=== PATIENT | male | born 1945 | race Caucasian/White ===

== ENCOUNTER 2021-03-12 06:44 | Day surgery (SDC) | payer MEDICARE, SELFPAY ==
--- NOTE | 2021-03-12 06:58 | W.ANESPRE ---
General Info Date of Service Date Performed: 03/12/21 Height: 5 ft 11 in Weight: 84.822 kg Body Mass Index (BMI): 26.0 Surgical Procedure: Operation Date: 03/12/21 08:40 Proposed Procedures Side Surgeon p Cataract Extraction with IOL Implant Left Fredrick Jackson MD Meds Allergies and Home Medications Allergies Allergy/AdvReac Type Severity Reaction Status Date / Time Penicillins Allergy Intermediate Skin Rash Unverified 03/09/21 10:44 codeine Allergy Unknown Skin Rash Unverified 03/09/21 10:44 propofol Allergy Unknown Other (See Unverified 03/09/21 10:44 Comment) sulfadiazine Allergy Unknown Itching Unverified 03/09/21 10:44 Seasonal allergies Allergy Intermediate Other (See Uncoded 03/09/21 10:44 Comment) Home Medication Medication Instructions Recorded acetaminophen 500 mg PO Q6H 03/09/21 bupropion HCl 150 mg PO DAILY 03/09/21 cetirizine 10 mg PO DAILY 03/09/21 finasteride 5 mg PO DAILY 03/09/21 gabapentin 400 mg PO TID 03/09/21 lidocaine-prilocaine 1 applic TOPICAL DAILY PRN 03/09/21 mecobalamin (vitamin B12) 10,000 mcg IM DIRECTED 03/09/21 meloxicam 15 mg PO DAILY PRN 03/09/21 pantoprazole 40 mg PO DAILY 03/09/21 tamsulosin 0.4 mg PO DAILY 03/09/21 Current Visit Medications: Current Medications Generic Name Dose Route Start Last Admin Trade Name Freq PRN Reason Stop Dose Admin Acetaminophen 1,000 mg 03/12/21 06:00 Acetaminophen 500 Mg Tab PO Q4H PRN PRN Miscellaneous Medication 0 ml 03/12/21 06:00 Prednisolone 1%, Moxifloxacin 0.5%, Nepafenac 0.1% 5ml Btl OS DIRECTED [facility] Miscellaneous Medication 0 ml 03/12/21 06:00 Tropicam./Phenyleph. (1/2.5%) 5 Ml Btl OS DIRECTED [facility] Tetracaine HCl 0 ml 03/12/21 06:00 Tetracaine 0.5% 4 Ml Btl OS DIRECTED [facility] Medical History Medical History (Updated 03/12/21 @ 07:00 by Scott Rosado) Chronic low back pain Hypotension Tiredness Surgical History Surgical History History of esophagogastroduodenoscopy (EGD) History of orthopedic surgery History of prostate surgery Hx of appendectomy Hx of cataract surgery Hx of cervical spine surgery Hx of cholecystectomy Hx of cystoscopy Hx of elbow surgery Hx of eye surgery Hx of spinal surgery Hx of tonsillectomy Hx of transurethral resection of prostate Tobacco Smoking/Tobacco Use Status: Never Alcohol Alcohol Intake: current Alcohol intake frequency: a few times a month Alcohol type: beer Substance Use Substance use: Never Substance use type: does not use Vital Signs and Lab Results Lab Results Blood Type / Crossmatch: No Data to Display Complete Blood Count: No Data to Display Complete Metabolic Panel: No Data to Display Liver Function Panel: No Data to Display Coagulation Panel: No Data to Display Cardiac Panel: No Data to Display Arterial Blood Gas: No Data to Display Venous Blood Gas: No Data to Display Pancreas Panel: No Data to Display Thyroid Panel: No Data to Display Infectious Disease: No Data to Display Blood Cultures: No Data to Display Toxicology Panel: No Data to Display Anesthesia Assessment and Plan Anesthesia History Personal History: Other (Per patient was notified during ACDF that he was a difficult intubation. No problems since with any GA. Patient not aware of Propofol allergy) Family History: No Family History of Anesthesia Complications Exercise Tolerance Exercise Tolerance: Metabolic Equivalents>4 Pertinent Negatives Pertinent Negatives: No Symptoms of GERD, No Major Cardiovascular Symptoms or Complaints, No Major Pulmonary Symptoms or Complaints and No History of CVA/TIA Cardiac & Pulmonary Exam Cardiac Exam: Normal S1/S2 Heart Sounds Pulmonary Exam: Clear Bilateral Breath Sounds Airway Exam Known Difficult Airway: No Mallampati Class: 2 Mouth Opening: Normal (> 3cm) Thyromental Distance: Greater than 3 cm Neck Range of Motion: Full ROM Neck Circumference: Normal Teeth Condition: Normal Dentition ASA Classification ASA Score: ASA 2 Emergency Case?: No NPO Status NPO Status: NPO Clears >2 hours, Solids >8 hours Anesthesia Plan Resuscitation Status: Full Code Anesthesia Technique: MAC Anesthesia Airway Planned: Natural Airway Monitors Used: Standard Monitors
[2021-03-12 07:09] VITALS: BP 115/76; PULSE 68; RESP 16; TEMP 36.3; O2SAT 96
[2021-03-12 07:19] VITALS: BMI 26.0
[2021-03-12] MEDS: Tropicam./Phenyleph. (1/2.5%) 5 ML BTL OS ×3 (07:25→07:38)
[2021-03-12] MEDS: Tetracaine 0.5% 4 ML BTL OS (08:32)
[2021-03-12] MEDS: Balanced Salt Soln.-PLUS 500 ML BAG (08:33)
[2021-03-12] MEDS: Duovisc Viscoelastic System EACH 1 EACH ×2 (08:33→09:12)
[2021-03-12] MEDS: Lidocaine 1% Pres-Free 5 ML VIAL (08:34)
[2021-03-12] MEDS: Lidocaine 2% Jelly 6 ML SYR (08:34)
[2021-03-12] MEDS: Povidone-Iodine Ophth 30 ML BTL (08:36)
[2021-03-12] MEDS: Trypan Blue 0.06% 0.5 ML SYR (08:36)
--- NOTE | 2021-03-12 09:39 | W.PM.DSUDISC ---
Discharge Plan Disposition Patient Disposition: HOME Condition: Good Discharge Details Attending Provider: Fredrick Jackson Home Meds and New Rx's Prescriptions: No Action cetirizine 10 mg Tablet 10 mg PO DAILY RF: 0 meloxicam 15 mg Tablet 15 mg PO DAILY PRNRF: 0 acetaminophen 500 mg Tablet 500 mg PO Q6H RF: 0 lidocaine-prilocaine 2.5-2.5 % Cream 1 applic topical DAILY PRNRF: 0 tamsulosin 0.4 mg Capsule 0.4 mg PO DAILY RF: 0 pantoprazole 40 mg Tablet,Delayed Release (Dr/Ec) 40 mg PO DAILY RF: 0 finasteride 5 mg Tablet 5 mg PO DAILY RF: 0 bupropion HCl 150 mg Tablet Extended Release 24 Hr 150 mg PO DAILY RF: 0 gabapentin 100 mg Tablet 400 mg PO TID RF: 0 mecobalamin (vitamin B12) 10,000 mcg Recon Soln 10,000 mcg IM DIRECTED RF: 0 Discharge Instructions Stand Alone Forms: Post-op Topical Cataract, Jaclyn Bae (DSU) Discharge Orders Discharge Orders: Discharge Order (Routine); Ordered 03/12/21 Ordered By: Fredrick Jackson DS: Diagnosis Discharge Diagnosis (1) Nuclear sclerotic cataract of left eye: Status: Resolved
--- NOTE | 2021-03-12 09:40 | ROE_ITS ---
Date of service: 03/12/21 Time of Service: 09:40 Operative Note Operative Note DATE OF PROCEDURE: 03/12/21 PRE-OP DIAGNOSIS: Dense nuclear cataract, left eye Poorly dilating pupil, left eye Poor red reflex, left eye secondary to cataract Posterior synechia inferiorly Status post peripheral laser iridotomy, left eye PROCEDURE: Cataract extraction using phacoemulsification with intraocular lens implant, left eye, with pupillary dilation using Malyugin Ring and capsular staining using Vision Blue SURGEON: Fredrick Jackson ANESTHESIA TYPE: Local By Surgeon and MAC Refer to Anesthesia Record ESTIMATED BLOOD LOSS: 0 PATHOLOGY: none sent COMPLICATIONS: None Patient was transported to: same day Patient's condition: stable Implants: [employer] / [employer] Tecnis [id number] Indications: Progressive decreased vision due to cataract, left eye Procedure Description: CATARACT SURGERY OPERATIVE REPORT PREOPERATIVE DIAGNOSIS: 1. Dense nuclear cataract, left eye 2. Poorly dilating pupil, left eye 3. Poor red reflex, left eye POSTOPERATIVE DIAGNOSIS: Same OPERATION: 1. Cataract extraction using phacoemulsification with posterior chamber intraocular lens implant, left eye. 2. Pupillary dilation and iris stabilization using Malyugin Ring 3. Capsular staining with VIsion Blue IOL: IOL Blow Molding Machine Operator/Model: [employer]ray[employer] / ANI Tecnis [id number] IOL Power: + 18.0 diopters IOL Serial Number: [id number] Optic Diameter: 6.0mm Haptic/Overall Diameter: 13.0mm PHACO INFO: Chris Kuratururion Vision System with OZil and Active [employer]uidics Cumulative Dispersed Energy (CDE): 13.95 seconds SURGEON: Fredrick Jackson MD, JEN ANESTHESIA: Monitored Anesthesia Care (MAC), with local sub-tenon's anesthetic infiltration COMPLICATIONS: None SPECIMENS: None INDICATIONS FOR PROCEDURE: The patient is a 75-year-old gentleman with history of narrow anterior chamber angles who has undergone laser iridotomy in both eyes approximately 15 years ago. He has previously undergone cataract surgery in the right eye in [place] in 2018. He has now developed a significant nuclear cataract in the left eye. He has a moderate to shallow anterior chamber in the left eye with posterior synechia inferiorly and a poorly dilating pupil. The option of cataract surgery was offered to the patient and he wished to proceed. PROCEDURE: The correct surgical eye was identified and marked as the left eye and the pupil was dilated in the preoperative area using mydriatics, cycloplegics, and NSAIDS (except in aspirin allergic patients). The dilated pupil size was 4.0 mm. He elected to proceed without oral sedation. The patien t was brought to the operating room where cardiopulmonary monitoring was instituted and surgical time-out was performed, confirming the correct operative eye and IOL power. Topical anesthesia was administered and ophthalmic povidone-iodine 5% was instilled into the conjunctival fornices. Lidocaine gel was applied to the cornea and the frieda-ocular area was prepped with Betadine 10% solution and draped in the usual sterile fashion for intraocular surgery, including an aperture drape. A Tegaderm transparent film dressing was cut in half and used to cover the lashes and lid margins. Care was taken to sequester the lashes and lid margins under the Tegaderm dressing. A lid speculum was placed between the lids of the operative eye and the Donna-Brock operating microscope was maneuvered into position. Alec scissors were then used to make a conjunctival buttonhole approximately 6mm posterior to the limbus in the inferonasal quadrant. Blunt dissection was carried out to expose bare sclera, and a blunt-tipped sub-tenon?s anesthesia cannula was introduced and passed posteriorly along the globe where non- preserved plain lidocaine was injected into posterior sub-Tenon?s space. A side port knife was used to make a paracentesis port superiorly/superiortemporally. Intraocular phenylephrine/lidocaine was injected into the anterior chamber. Air was then injected into anterior chamber, followed by Vision Blue, which was painted over the anterior capsule and then irrigated out with BSS. The anterior chamber was then filled with viscoelastic. A 2.4mm keratome knife was used to create a half-thickness groove at the limbus and then to construct a three-plane near-clear corneal tunnel extending 2.0mm into clear cornea temporally. A Kuglen hook was then used to release posterior synechia from approximately 4:00 to 7:00. A 7.0 mm Malyugin Ring was then inserted into the pupillary space and engaged with the Kuglen hook. A flap was raised on the anterior capsule and capsulorhexis forceps were used to initiate a capsulorhexis at the 1 o'clock position, traveling clockwise. At approximately the 4 o'clock position, scarring was noted between the capsule and lens cortex, causing the capsulorrhexis to radial eyes peripherally. Additional viscoelastic was then injected into the anterior chamber. Using the Little maneuver, I was unable to bring the capsulorrhexis centrally. A cystotome was then used to make a kateryna in the capsule at the 1 o'clock position and a capsulorrhexis was initiated in the counterclockwise direction, connecting with the peripherally extended capsul orhexis at the 4 o'clock position. Balanced salt solution was then used to perform very gentle cortical cleaving hydrodissection and nuclear hydrodelineation until the lens could be an early rotated within the capsular bag. The lens nucleus was then disassembled and removed within the capsular bag and iris plane using phacoemulsification. Nuclear splitters were used to aid in cracking the dense nucleus into smaller fragments. Additional dispersive viscoelastic was used to protect the corneal endothelium. Once the lens nucleus and epinucleus was removed, it was found that the peripherally extended capsulorrhexis inferior temporally had turned into a radial tear. Residual cortical material was removed using the 45-degree angled silicone I/A tip with 0.3mm port. There was some residual subincisional cortex and inferior temporal cortex in the area of the radial tear which could not be safely removed. Visco dissection was attempted to dissect the remaining cortex off of the posterior capsule, but was unsuccessful. . The capsular bag was then inflated and the anterior chamber deepened with viscoelastic. The lens implant described above was inserted into the capsular bag using the ANI [place] Injector. A Kuglen hook was used to dial the IOL into position with the haptics oriented 90 degrees away from the radial tear. The Malyugin Ring was removed in the reverse order of its insertion. Residual viscoelastic was then removed first from posterior to the IOL, then from the anterior chamber using the I/A handpiece. The lens implant was noted to center nicely within the capsular bag. The incisions were stromally hydrated, and the anterior chamber was reformed using BSS. Some residual cortical strands were noted in the subincisional area and inferior temporally. Then 0.5cc of moxifloxacin 1.0mg/ml were injected into the capsular bag and anterior chamber. The incisions were checked with a Weck spear and found to be secure. Several drops of ophthalmic povidone-iodine 5% were then applied to the eye followed by two drops of Imprimis combination prednisolone/moxifloxacin/nepafenac solution. The drapes were removed and a clear plastic protective eye shield was placed over the eye. The patient was then returned to Same Day Surgery in stable condition.
[2021-03-12 09:45] VITALS: BP 124/74; PULSE 57; RESP 16; TEMP 36.2; O2SAT 97
--- NOTE | 2021-03-12 09:49 | W.ANESPOSTOP ---
Postoperative Evaluation Date, Time and Location Date Performed: 03/12/21 Time Performed: 09:49 Patient Location: Day Surgery Unit Vital Signs Most Recent Imported Vital Signs: Most Recent Vital Signs Temp Pulse Resp BP Pulse Ox 36.2 C L 57 L 16 124/74 97 03/12/21 09:45 03/12/21 09:45 03/12/21 09:45 03/12/21 09:45 03/12/21 09:45 Pain Score Most Recent Pain Score: Most Recent Pain Score Pain Level 5 03/12/21 07:09 Assessment Mental Status: Awake (Alert & Oriented to Patient Baseline) Airway and Respiratory Function: Patent airway with normal (patient baseline) respiratory exam Cardiovascular Function: Hemodynamically Stable Hydration Status: Adequately Hydrated Nausea & Vomiting: No Nausea or Vomiting Pain: Pt. Denies Any Pain Peripheral Nerve Block: Patient did not receive a nerve block
== END 2021-03-12 10:00 | disposition home or self-care (01) ==
PROVIDERS: Visit Provider Ophthalmology
PROC: (CPT 66982; principal; 2021-03-12 08:30)
DX: H25.12 Age-related nuclear cataract, left eye (principal); H57.03 Miosis
CPT/HCPCS: 66982; V2632